=== PATIENT | female | born 2000 | race Caucasian/White ===

== ENCOUNTER 2023-06-01 20:39 | Emergency (ER) | payer OTHER ==
[2023-06-01 20:49] VITALS: BP 128/69; RESP 18; TEMP 97.6; BMI 19.3
[2023-06-01] MEDS ORDERED: LIDOCAINE 4% PATCH TP ONE (21:21)
[2023-06-01] MEDS ORDERED: ACETAMINOPHEN 325 MG TABLET (FP) ONE (21:21)
[2023-06-01] MEDS ORDERED: CYCLOBENZAPRINE HCL 10 MG TABLET (FP) ONE (21:21)
[2023-06-01] MEDS ORDERED: LIDOCAINE PATCH REMOVAL MC SCH (22:00)
[2023-06-01] MEDS ORDERED: ONDANSETRON *ODT* 4 MG TABLET ONE (22:27)
[2023-06-01] MEDS: ONDANSETRON *ODT* 4 MG TABLET SL ONE (22:29)
[2023-06-01] MEDS: ACETAMINOPHEN 500 MG TABLET (FP) PO ONE (22:29)
[2023-06-01] MEDS: CYCLOBENZAPRINE HCL 5 MG TABLET PO ONE (22:29)
[2023-06-01] MEDS: LIDOCAINE 5% TOPICAL PATCH TP ONE (23:11)
[2023-06-01 23:46] VITALS: PULSE 104
== END 2023-06-01 23:50 | disposition home or self-care (01) ==
LOC: JER 20:39
DX: M51.27 Other intervertebral disc displacement, lumbosacral region (principal); V89.2XXA Person injured in unspecified motor-vehicle accident, traffic, initial encounter; Z20.822 Contact with and (suspected) exposure to COVID-19
CPT/HCPCS: 0241U-QW; 70450-TC; 71046-TC-FY; 72125-TC; 72131-TC; 72170-TC-FY; 73000-TC-RT-FY; 73030-TC-RT-FY; 93005; 93010; 99285-25; Q0162